=== PATIENT | male | born 1995 | race Two or more races ===

== ENCOUNTER 2021-12-14 18:47 | Emergency (ER) | payer OTHER ==
[~2021-12-14] VITALS: Ht 170.2 cm; Wt 81.8 kg
[2021-12-14 18:50] VITALS: BP 134/79
== END 2021-12-14 21:48 | disposition home or self-care (01) ==
LOC: EMS 18:50
DX: S62.630A Displaced fracture of distal phalanx of right index finger, initial encounter for closed fracture (principal); W50.0XXA Accidental hit or strike by another person, initial encounter; Y93.66 Activity, soccer; Y92.89 Other specified places as the place of occurrence of the external cause; Y99.8 Other external cause status
CPT/HCPCS: 99284; 73110-TC; 73130-TC; Z7502

== ENCOUNTER 2022-02-09 15:57 | Emergency (ER) | payer OTHER ==
[~2022-02-09] VITALS: Ht 170.2 cm; Wt 109.1 kg
[2022-02-09 15:58] VITALS: BP 141/102
[2022-02-09] MEDS ORDERED: PERTUSS(ACELL),DIPH,TET VAC/PF 0.5 ML SYRINGE IM. ONE (18:15)
[2022-02-09] MEDS ORDERED: LIDOCAINE 1% 10 ML VIAL PERC ONE (18:15)
[2022-02-09] MEDS ORDERED: CEPH-558 PO (18:39)
[2022-02-09] MEDS ORDERED: BACI28OI29 TP (18:40)
[2022-02-09] MEDS ORDERED: BACITRACIN 0.9 GM PACKET OINTMENT TP ONE (18:45)
== END 2022-02-09 19:10 | disposition home or self-care (01) ==
LOC: EMS 15:58
DX: S61.412A Laceration without foreign body of left hand, initial encounter (principal); W45.8XXA Other foreign body or object entering through skin, initial encounter; Y93.89 Activity, other specified; Y92.89 Other specified places as the place of occurrence of the external cause; Y99.8 Other external cause status
CPT/HCPCS: 12001; 90471; 90715; 99283; J3490